=== PATIENT | male | born 1945 | race Caucasian/White ===

== ENCOUNTER 2023-07-29 18:28 | Inpatient (IN) | payer OTHER, MEDICARE ==
[2023-07-29] MEDS ORDERED: Ondansetron PF 4 MG/2 ML Vial IVP PRN (19:00)
[2023-07-29] MEDS ORDERED: Ondansetron ODT 4 MG TAB SL PRN (19:00)
[2023-07-29] MEDS ORDERED: Acetaminophen 325 MG TAB PO PRN (19:00)
[2023-07-29 19:49] LABS: Troponin I 0.133 ng/mL (< 0.028)
[2023-07-29 20:57] VITALS: BMI 33.2
[2023-07-29] MEDS: Metoprolol Tartrate 25 MG TAB PO SCH (20:57)
[2023-07-29] MEDS: Nitroglycerin 2% Ointment 1 INCH/1 GM Packet TOP SCH (20:57)
[2023-07-29] MEDS ORDERED: Enoxaparin 120 MG/0.8 ML SYRINGE SC SCH (22:00)
[2023-07-30 04:10] LABS: #Basophils 0.1 thou/uL (0.0-0.2); #Eosinphils 0.2 thou/uL (0.0-0.7); #Monocytes 0.7 thou/uL (0.11-0.59); #Neutrophils 4.5 thou/uL (1.40-6.50); %Basophils 0.9 % (0.0-1.0); %Eosinophils 3.1 % (0.0-10.0); %Lymphocytes 20.7 % (21.0-51.0); %Monocytes 9.7 % (0.0-10.0); %Neutrophils 65.3 % (42.0-75.0); Hematocrit 38.1 % (42.0-52.0); Hemoglobin 12.6 g/dL (14.0-18.0); Mean Corpuscular HGB CONC 33.1 g/dL (32.0-36.0); Mean Corpuscular Hemoglobin 29.4 pg (27.0-31.0); Mean Corpuscular Volume 88.8 fl (78.0-98.0); Mean Platelet Volume 9.1 fL (7.4-10.4); Platelet Count 254 10x3/uL (130-400); RBC Distribution Width 14.4 % (11.5-14.5); Red Blood Cell (RBC) Count 4.29 mill/uL (4.70-6.10); White Blood Cell (WBC) Count 6.8 10x3/uL (4.8-10.8)
[2023-07-30 04:14] LABS: Hemoglobin A1c 6.3 % (4.0-6.0)
[2023-07-30 04:35] LABS: Troponin I 0.117 ng/mL (< 0.028)
[2023-07-30 04:36] LABS: Anion Gap 15 mmol/L (10-20); BUN (Urea Nitrogen) 21 mg/dL (8.4-25.7); Calc. Creatinine Clearance 56 mL/min (70-130); Calcium 8.8 mg/dL (7.8-10.44); Carbon Dioxide 22 mmol/L (23-31); Cardiac Risk 9.2 (Less than 4.5); Chloride 108 mmol/L (98-107); Cholesterol 239 mg/dl (< 200 Desired); Estimated GFR 42; Glucose 122 mg/dL (83-110); HDL Cholesterol 26 mg/dL (>60 Neg Risk); LDL Cholesterol, Calculated 141 mg/dL; Potassium 4.5 mmol/L (3.5-5.1); Sodium 140 mmol/L (136-145); Triglycerides 360 mg/dL (Less than 150)
[2023-07-30] MEDS: Nitroglycerin 2% Ointment 1 INCH/1 GM Packet TOP SCH ×3 (05:07→21:40)
[2023-07-30] MEDS ORDERED: Ezetimibe 10 MG TAB PO SCH (09:00)
[2023-07-30] MEDS ORDERED: FLU VACC QS2023(65UP)/MF59C/PF 60 MCG/0.5 ML SYRINGE IM ONE (09:00)
[2023-07-30] MEDS ORDERED: Clopidogrel Bisulfate 75 MG TAB PO SCH (09:00)
[2023-07-30] MEDS ORDERED: Aspirin 81 mg Enteric Coated Tablet ONE (09:12)
[2023-07-30] MEDS: Aspirin Chewable 81 MG TAB PO SCH (09:14)
[2023-07-30] MEDS: Metoprolol Tartrate 25 MG TAB PO SCH ×3 (09:15→21:40)
[2023-07-30] MEDS ORDERED: Icosapent Ethyl 1 GM CAPSULE PO SCH (09:45)
[2023-07-30] MEDS ORDERED: Clopidogrel Bisulfate 300 MG TAB PO SCH (09:45)
[2023-07-30] MEDS ORDERED: Amlodipine 5 MG TAB PO SCH (09:45)
[2023-07-30] MEDS ORDERED: Enoxaparin 120 MG/0.8 ML SYRINGE SC SCH ×2 (09:45→21:00)
[2023-07-30] MEDS ORDERED: Loratadine 10 MG TAB PO PRN (17:53)
[2023-07-30] MEDS: Terazosin HCl 1 MG CAP PO SCH (21:39)
[2023-07-30] MEDS: Icosapent Ethyl 1 GM CAPSULE PO SCH (21:40)
[2023-07-31] MEDS: Nitroglycerin 2% Ointment 1 INCH/1 GM Packet TOP SCH (04:30)
[2023-07-31 04:46] LABS: #Basophils 0.1 thou/uL (0.0-0.2); #Eosinphils 0.2 thou/uL (0.0-0.7); #Monocytes 0.6 thou/uL (0.11-0.59); #Neutrophils 3.5 thou/uL (1.40-6.50); %Eosinophils 2.5 % (0.0-10.0); %Lymphocytes 27.6 % (21.0-51.0); %Monocytes 9.5 % (0.0-10.0); %Neutrophils 59.1 % (42.0-75.0); Hematocrit 39.2 % (42.0-52.0); Mean Corpuscular HGB CONC 33.2 g/dL (32.0-36.0); Mean Corpuscular Hemoglobin 29.3 pg (27.0-31.0); Mean Corpuscular Volume 88.5 fl (78.0-98.0); Mean Platelet Volume 8.9 fL (7.4-10.4); Platelet Count 231 10x3/uL (130-400); RBC Distribution Width 14.2 % (11.5-14.5); Red Blood Cell (RBC) Count 4.43 mill/uL (4.70-6.10)
[2023-07-31 05:09] LABS: Anion Gap 14 mmol/L (10-20); BUN (Urea Nitrogen) 21 mg/dL (8.4-25.7); Calc. Creatinine Clearance 53 mL/min (70-130); Calcium 9.2 mg/dL (7.8-10.44); Carbon Dioxide 24 mmol/L (23-31); Chloride 105 mmol/L (98-107); Estimated GFR 39; Glucose 124 mg/dL (83-110); Potassium 4.5 mmol/L (3.5-5.1); Sodium 138 mmol/L (136-145)
[2023-07-31] MEDS ORDERED: Regadenoson 0.4 MG/5 ML SYRINGE ONE (08:43)
[2023-07-31] MEDS ORDERED: Lisinopril 10 MG TAB PO SCH (09:00)
[2023-07-31] MEDS ORDERED: Isosorbide Mononitrate 60 MG ER.TAB PO SCH (09:00)
[2023-07-31] MEDS ORDERED: Amlodipine 5 MG TAB PO SCH (09:00)
[2023-07-31] MEDS ORDERED: Amlodipine 10 MG TAB PO SCH (09:00)
[2023-07-31] MEDS: Clopidogrel Bisulfate 75 MG TAB PO SCH (09:24)
[2023-07-31] MEDS: Aspirin Chewable 81 MG TAB PO SCH (09:24)
[2023-07-31] MEDS: Icosapent Ethyl 1 GM CAPSULE PO SCH ×2 (12:16→20:32)
[2023-07-31] MEDS: Metoprolol Tartrate 25 MG TAB PO SCH ×2 (12:16→20:32)
[2023-07-31] MEDS ORDERED: Sodium Chloride 0.9% 1,000 ML IV SCH (17:15)
[2023-07-31] MEDS ORDERED: Sodium Chloride 0.9% 500 ML IV SCH (17:15)
[2023-07-31] MEDS: Terazosin HCl 1 MG CAP PO SCH (20:32)
[2023-07-31] MEDS ORDERED: Famotidine 20 MG TAB PO SCH (23:30)
[2023-08-01 04:24] LABS: #Basophils 0.1 thou/uL (0.0-0.2); #Eosinphils 0.1 thou/uL (0.0-0.7); #Monocytes 0.6 thou/uL (0.11-0.59); #Neutrophils 5.1 thou/uL (1.40-6.50); %Basophils 0.8 % (0.0-1.0); %Eosinophils 1.8 % (0.0-10.0); %Lymphocytes 19.6 % (21.0-51.0); %Monocytes 8.3 % (0.0-10.0); %Neutrophils 69.4 % (42.0-75.0); Hematocrit 35.3 % (42.0-52.0); Hemoglobin 11.7 g/dL (14.0-18.0); Mean Corpuscular HGB CONC 33.1 g/dL (32.0-36.0); Mean Corpuscular Hemoglobin 29.3 pg (27.0-31.0); Mean Corpuscular Volume 88.3 fl (78.0-98.0); Platelet Count 225 10x3/uL (130-400); RBC Distribution Width 14.1 % (11.5-14.5); White Blood Cell (WBC) Count 7.4 10x3/uL (4.8-10.8)
[2023-08-01 04:52] LABS: Anion Gap 14 mmol/L (10-20); BUN (Urea Nitrogen) 28 mg/dL (8.4-25.7); Calc. Creatinine Clearance 51 mL/min (70-130); Calcium 8.7 mg/dL (7.8-10.44); Carbon Dioxide 20 mmol/L (23-31); Chloride 106 mmol/L (98-107); Estimated GFR 38; Glucose 129 mg/dL (83-110); Potassium 4.6 mmol/L (3.5-5.1); Sodium 135 mmol/L (136-145)
[2023-08-01] MEDS ORDERED: Morphine 2 MG/ML VIAL SLOW IVP SCH ×2 (05:30→07:30)
[2023-08-01 05:43] LABS: Troponin I 0.069 ng/mL (< 0.028)
[2023-08-01 05:50] LABS: ALT (SGPT) 32 U/L (8-55); AST (SGOT) 24 U/L (5-34); Alkaline Phosphatase 54 U/L (40-110); Bilirubin, Direct 0.2 mg/dL (0.1-0.3); Bilirubin, Total 0.5 mg/dL (0.2-1.2); Lipase 9 U/L (8-78); Protein, Total 5.9 g/dL (5.8-8.1)
[2023-08-01] MEDS ORDERED: Nitroglycerin 0.4 MG TAB (25 Tab Bottle) ONE (05:54)
[2023-08-01] MEDS ORDERED: Nitroglycerin 0.4 MG TAB (25 Tab Bottle) SL PRN (05:54)
[2023-08-01] MEDS ORDERED: Morphine 4 MG/ML VIAL ONE (07:07)
[2023-08-01] MEDS ORDERED: Nitroglycerin 2% Ointment 1 INCH/1 GM Packet ONE (07:09)
[2023-08-01] MEDS ORDERED: Nitroglycerin 2% Ointment 1 INCH/1 GM Packet TOP SCH (07:30)
[2023-08-01] MEDS ORDERED: Ranolazine 500 MG ER.TAB PO SCH (07:30)
[2023-08-01] MEDS ORDERED: Midazolam HCl 2 mg/2 ml Vial ONE (07:40)
[2023-08-01] MEDS ORDERED: fentaNYL 50 mcg/mL 1 mL Vial ONE (07:40)
[2023-08-01] MEDS ORDERED: Aspirin Chewable 81 MG TAB ONE (07:40)
[2023-08-01] MEDS ORDERED: Heparin 10,000 UNITS/ 10 ML VIAL ONE ×2 (08:11→08:21)
[2023-08-01] MEDS ORDERED: Adenosine 6 MG/2 ML VIAL ONE (08:13)
[2023-08-01] MEDS ORDERED: Verapamil 5 MG/2 ML VIAL ONE (08:20)
[2023-08-01] MEDS ORDERED: Nitroglycerin 50 MG/250 ML BOT 250 ML ONE (08:21)
[2023-08-01] MEDS ORDERED: Lidocaine 1% (PF) 30 ML VIAL ONE (08:21)
[2023-08-01] MEDS ORDERED: Clopidogrel Bisulfate 300 MG TAB ONE (08:37)
[2023-08-01] MEDS ORDERED: Amlodipine 5 MG TAB PO SCH ×2 (09:00→21:00)
[2023-08-01] MEDS: Metoprolol Tartrate 25 MG TAB PO SCH ×2 (12:39→20:27)
[2023-08-01] MEDS: Isosorbide Mononitrate 30 MG ER.TAB PO SCH (12:39)
[2023-08-01] MEDS: Icosapent Ethyl 1 GM CAPSULE PO SCH ×2 (12:40→20:26)
[2023-08-01] MEDS: Ranolazine 500 MG ER.TAB PO SCH ×2 (12:55→20:27)
[2023-08-01] MEDS: Aspirin Chewable 81 MG TAB PO SCH (12:55)
[2023-08-01] MEDS: Clopidogrel Bisulfate 75 MG TAB PO SCH (12:55)
[2023-08-01] MEDS ORDERED: Morphine 2 MG/ML VIAL SLOW IVP PRN (13:18)
[2023-08-01] MEDS: Sodium Chloride 0.9% 1,000 ML IV SCH (13:45)
[2023-08-01] MEDS ORDERED: Mag-Al 1200 mg/1200 mg/30 ML UDCUP PO PRN (19:29)
[2023-08-01 19:38] LABS: Troponin I 33.685 ng/mL (< 0.028)
[2023-08-01] MEDS: Atorvastatin Calcium 40 MG TAB PO SCH (20:26)
[2023-08-01] MEDS: Terazosin HCl 1 MG CAP PO SCH (20:32)
[2023-08-01] MEDS ORDERED: Rivaroxaban 2.5 MG TAB PO SCH (21:00)
[2023-08-02 04:08] LABS: #Basophils 0.1 thou/uL (0.0-0.2); #Eosinphils 0.2 thou/uL (0.0-0.7); #Monocytes 0.6 thou/uL (0.11-0.59); #Neutrophils 5.1 thou/uL (1.40-6.50); %Basophils 0.7 % (0.0-1.0); %Eosinophils 2.1 % (0.0-10.0); %Lymphocytes 16.1 % (21.0-51.0); %Monocytes 8.3 % (0.0-10.0); %Neutrophils 72.5 % (42.0-75.0); Hematocrit 35.6 % (42.0-52.0); Hemoglobin 11.9 g/dL (14.0-18.0); Mean Corpuscular HGB CONC 33.4 g/dL (32.0-36.0); Mean Corpuscular Hemoglobin 29.5 pg (27.0-31.0); Mean Corpuscular Volume 88.3 fl (78.0-98.0); Mean Platelet Volume 8.8 fL (7.4-10.4); Platelet Count 205 10x3/uL (130-400); Red Blood Cell (RBC) Count 4.03 mill/uL (4.70-6.10)
[2023-08-02 04:35] LABS: ALT (SGPT) 74 U/L (8-55); AST (SGOT) 83 U/L (5-34); Albumin 3.9 g/dL (3.4-4.8); Alkaline Phosphatase 52 U/L (40-110); Anion Gap 12 mmol/L (10-20); BUN (Urea Nitrogen) 17 mg/dL (8.4-25.7); Bilirubin, Total 0.7 mg/dL (0.2-1.2); Calc. Creatinine Clearance 66 mL/min (70-130); Calcium 8.2 mg/dL (7.8-10.44); Carbon Dioxide 21 mmol/L (23-31); Chloride 109 mmol/L (98-107); Estimated GFR 52; Glucose 122 mg/dL (83-110); Potassium 4.7 mmol/L (3.5-5.1); Protein, Total 5.9 g/dL (5.8-8.1); Sodium 137 mmol/L (136-145)
[2023-08-02] MEDS: Sodium Chloride 0.9% 1,000 ML IV SCH (05:14)
[2023-08-02 05:31] LABS: Critical Call Chem Troponin I RESULT DECREASING; Troponin I 19.581 ng/mL (< 0.028)
[2023-08-02] MEDS: Icosapent Ethyl 1 GM CAPSULE PO SCH ×2 (08:51→21:31)
[2023-08-02] MEDS: Clopidogrel Bisulfate 75 MG TAB PO SCH (08:52)
[2023-08-02] MEDS: Thiamine 100 MG TAB PO SCH (08:52)
[2023-08-02] MEDS: Isosorbide Mononitrate 30 MG ER.TAB PO SCH (08:52)
[2023-08-02] MEDS: Folic Acid 1 MG TAB PO SCH (08:52)
[2023-08-02] MEDS: Ranolazine 500 MG ER.TAB PO SCH ×2 (08:52→21:32)
[2023-08-02] MEDS: Aspirin Chewable 81 MG TAB PO SCH (08:52)
[2023-08-02] MEDS: Metoprolol Tartrate 25 MG TAB PO SCH ×2 (08:52→21:32)
[2023-08-02] MEDS ORDERED: Rivaroxaban 2.5 MG TAB PO SCH (09:00)
[2023-08-02] MEDS: Multivit, Chewable SF 1 TAB PO SCH (12:28)
[2023-08-02] MEDS: Atorvastatin Calcium 40 MG TAB PO SCH (21:30)
[2023-08-02] MEDS: Rivaroxaban 2.5 MG TAB PO SCH (21:31)
[2023-08-02] MEDS: Terazosin HCl 1 MG CAP PO SCH (21:32)
[2023-08-03] MEDS: Metoprolol Tartrate 25 MG TAB PO SCH (08:53)
[2023-08-03] MEDS: Aspirin Chewable 81 MG TAB PO SCH (08:53)
[2023-08-03] MEDS: Icosapent Ethyl 1 GM CAPSULE PO SCH (08:53)
[2023-08-03] MEDS: Isosorbide Mononitrate 30 MG ER.TAB PO SCH (08:53)
[2023-08-03] MEDS: Folic Acid 1 MG TAB PO SCH (08:53)
[2023-08-03] MEDS: Clopidogrel Bisulfate 75 MG TAB PO SCH (08:53)
[2023-08-03] MEDS: Ranolazine 500 MG ER.TAB PO SCH (08:54)
[2023-08-03] MEDS: Thiamine 100 MG TAB PO SCH (08:54)
[2023-08-03] MEDS: Rivaroxaban 2.5 MG TAB PO SCH (12:30)
[2023-08-03] MEDS: Multivit, Chewable SF 1 TAB PO SCH (12:36)
[2023-08-03 12:44] VITALS: BP 153/72; TEMP 97.8
== END 2023-08-03 15:10 | disposition home or self-care (01) | DRG 322 ==
LOC: 2NO 18:28 → CCU 08-01 10:37 → 2SW 08-02 22:50
PROVIDERS: ADMIT Internal Medicine; ATTEND Internal Medicine
PROC: 4A023N7 Measurement of Cardiac Sampling and Pressure, Left Heart, Percutaneous Approach (ICD-10-PCS; principal; 2023-08-01)
PROC: 027034Z Dilation of Coronary Artery, One Artery with Drug-eluting Intraluminal Device, Percutaneous Approach (ICD-10-PCS; 2023-08-01)
PROC: 02C03ZZ Extirpation of Matter from Coronary Artery, One Artery, Percutaneous Approach (ICD-10-PCS; 2023-08-01)
PROC: B2151ZZ Fluoroscopy of Left Heart using Low Osmolar Contrast (ICD-10-PCS; 2023-08-01)
PROC: B2111ZZ Fluoroscopy of Multiple Coronary Arteries using Low Osmolar Contrast (ICD-10-PCS; 2023-08-01)
PROC: B2181ZZ Fluoroscopy of Left Internal Mammary Bypass Graft using Low Osmolar Contrast (ICD-10-PCS; 2023-08-01)
PROC: B21F1ZZ Fluoroscopy of Other Bypass Graft using Low Osmolar Contrast (ICD-10-PCS; 2023-08-01)
DX: I21.4 Non-ST elevation (NSTEMI) myocardial infarction (principal); I25.110 Atherosclerotic heart disease of native coronary artery with unstable angina pectoris; E78.5 Hyperlipidemia, unspecified; K21.9 Gastro-esophageal reflux disease without esophagitis; N40.0 Benign prostatic hyperplasia without lower urinary tract symptoms; Z86.73 Personal history of transient ischemic attack (TIA), and cerebral infarction without residual deficits; Z79.82 Long term (current) use of aspirin; Z79.899 Other long term (current) drug therapy; Z95.1 Presence of aortocoronary bypass graft; Z95.5 Presence of coronary angioplasty implant and graft; Z98.890 Other specified postprocedural states; Z87.891 Personal history of nicotine dependence; E66.9 Obesity, unspecified; Z68.33 Body mass index [BMI] 33.0-33.9, adult; N18.30 Chronic kidney disease, stage 3 unspecified; I12.9 Hypertensive chronic kidney disease with stage 1 through stage 4 chronic kidney disease, or unspecified chronic kidney disease
CPT/HCPCS: 36415; 36416; 78452; 80048; 80053; 80061; 80076; 83036; 83690; 84484; 85025; 85347; 92941; 92973; 93005; 93010; 93017; 93455; 93798; 94760; 97139; 99152; 99153; A9502; C1725; C1769; C1874; C1887; C9606; J0153; J1644; J1650; J2001; J2250; J2270; J2272; J2405; J2785; J3010; J7050